=== PATIENT | male | born 1985 | race Caucasian/White ===

== ENCOUNTER 2017-02-20 16:00 | Emergency (ER) | payer OTHER, BC ==
[~2017-02-20] VITALS: Ht 182.9 cm; Wt 104.5 kg
[2017-02-20 16:09] VITALS: Ht 182.9 cm; Wt 104.5 kg
--- NOTE | 2017-02-20 16:21 | NUR ---
PROVIDER DR GIORDANO TO SEE PT
--- NOTE | 2017-02-20 16:39 | ERPDOC ---
Departure Disposition Decision Date: Feb 20, 2017 Disposition Decision Time: 18:26 Disposition: 01 DISCHARGED HOME, SELF-CARE Impression Impression Impression: Primary Impression: Sprain of ankle Additional Impression: Decreased pulses in feet Severity: Moderate Condition: Stable Seen By: Physician only Referrals: LIOR TERRELL MD (Family) Patient Instructions: Ankle Strain (ED) Problems/Meds/Labs Reviewed?: Yes Medications reviewed and manag: Yes Additional Instructions: Percocet 5 mg tablet, 1 TAB 4 times a day as needed for ankle pain. Follow-up with primary care provider in one week if still hurting.. He will need earlier follow-up if pain worsens or color or swelling of foot worsens. Follow up care ordered?: Yes Mental Status: Alert, Oriented Scripts Oxycodone HCl/Acetaminophen (Percocet 5-325 mg Tablet) 5-325 Tablet 1 TAB PO TID Y for PAIN, #15 TAB Take 1 tablet, by mouth, 4 times a day. Prov: HUSSEIN GIORDANO MD 02/20/17 HPI - Lower Extremity General Chief Complaint: Lower Extremity Injury Stated Complaint: RT ANKLE PAIN Time Seen by Provider: 16:35 HPI - Lower Extremity Initial Comments 31-year-old male with right foot pain. Patient twisted his ankle, noticed that he could not bear weight this afternoon and had worsening pain. He was seen by Dr. Frank who noted difficulty getting pulses and cool temperature in the foot. She tried to order an arterial study, but his pain was too high to wait, he was sent to the ED for evaluation and care. She did call before she sent him over. No other injuries, no previous injury to that foot. Patient feels like his whole body is hot and flushed except for the foot which is cold and feels like it's an ice bucket. Allergies: Coded Allergies: No Known Allergies (Unverified , 02/20/17) Past History Past Medical History Pt denies signifigant PMH Surgical History Denies Surgeries Family History Family History: Negative Social History Smoking Status: Never smoker Record Review Pertinent history updated: Yes Review of Systems Integumentary Skin: see HPI All other Systems All Other Systems: Reviewed and Negative Physical Exam General General Nourishment: well nourished, well developed, appears stated age Distress Description Pain in foot, sitting in wheelchair Vitals and Pain First Documented Vital Signs Date Time Temp Pulse Resp B/P Pulse Ox O2 Delivery O2 Flow Rate FiO2 02/20/17 16:09 99.0 87 20 139/78 98 Room Air Weight: Kilograms: 104.500 Height (feet): 6 Height (inches): 0 Triage Pain Scale: Normal Exams: Chest/Resp: Clear all ackerman, with good airflow, and symmetry bilaterally CV: Regular rate and rhythm, without murmur or gallop, Pulses 2+ all extremities, capillary refill, <2 seconds all ext., no pedal edema noted Neurologic: Patient is alert, and oriented, cranial nerves, motor/sensory/ cerebellar, exams w/o gross deficits, to observation Psychiatric: Patient exhibits, appropriate attention, emotion and affect Musculoskeletal (brief) Comments Pain lateral right ankle with edema. Foot is literally cold to the touch, toes are somewhat dusky. I am able to palpate a pulse distal. Neurologic (brief) Comments Sensory intact in right foot Differential Diagnoses Considering: Contusion, Dislocation, DVT, Fracture, Sprain, Strain Progress Results/Orders Orders Procedure Category Date Status Time Us Arterial Extremity US 02/20/17 Taken Lower Rt Foot Right 2 Views RAD 02/20/17 Taken Ankle Right 3 View RAD 02/20/17 Taken D-Dimer LAB 02/20/17 In Process Hydromorphone PHA 02/20/17 Complete (Dilaudid) 16:45 Ondansetron Odt PHA 02/20/17 Complete (Zofran Odt) 16:45 Lab Results Laboratory Tests Test 02/20/17 18:09 D-Dimer Pending Medications Current ED Medications Hydromorphone HCl (Dilaudid) 1 mg O ONCE IM Last administered on 02/20/17 17: 14; Start 02/20/17 at 16:45; Stop 02/20/17 at 16:46; Status DC Ondansetron HCl (Zofran Odt) 4 mg O ONCE PO Last administered on 02/20/17 17: 12; Start 02/20/17 at 16:45; Stop 02/20/17 at 16:46; Status DC Progress Progress Patient has significant sprain of right ankle. Vascular studies were obtained and showed patent arteries into the foot. Patient placed in a [place] boot/Cam Walker and will wear it for comfort. If pain is still present in a week, he will need further imaging of the joint. He will follow-up with his primary care provider as needed. Pain certainly increases or swelling or color worsen, he will follow up with primary care provider. HUSSEIN GIORDANO MD Feb 20, 2017 16:39
[2017-02-20] MEDS ORDERED: HYDROMORPHONE 2mg/ml INJECTION IM ONE (16:45)
[2017-02-20] MEDS ORDERED: ONDANSETRON ODT 4 MG TAB PO ONE (16:45)
[2017-02-20] MEDS ORDERED: LORA10TA62 PO (17:08)
[2017-02-20] MEDS ORDERED: IBUP-1724 PO (17:09)
[2017-02-20] MEDS ORDERED: FLUT9.9S NAS (17:09)
--- NOTE | 2017-02-20 17:14 | NUR ---
XRY PT TO XRY VIA WC.
--- NOTE | 2017-02-20 17:14 | NUR ---
[facility] PT GIVEN INSTRUCTION REGARDING ZOFRAN AND DILUADID. UNDERSTANDING VERBALIZED.
--- NOTE | 2017-02-20 17:22 | NUR ---
XRY PT RETURNED.
--- NOTE | 2017-02-20 18:10 | NUR ---
LAB IN ROOM TO DRAW LAB.
[2017-02-20] MEDS ORDERED: OXYC1TAB8 PO (18:29)
[2017-02-20 18:42] VITALS: BP 139/78; PULSE 87; RESP 20; TEMP 99; O2SAT 98
--- NOTE | 2017-02-21 08:38 | DI ---
Indication: ITS.REASON: rolled ankle PROCEDURE: FOOT RIGHT 2 VIEWS: Encounter: Initial Comparison: None Findings: There is no acute fracture, dislocation or malalignment identified. Impression: No acute osseous abnormality. .
--- NOTE | 2017-02-21 08:41 | DI ---
Indication: ITS.REASON: rolled ankle PROCEDURE: ANKLE RIGHT 3 VIEW: Encounter: Initial Comparison: None Findings: There is no acute fracture, dislocation or malalignment identified. Mild lateral soft tissue swelling. Impression: No acute osseous abnormality. .
--- NOTE | 2017-02-21 08:43 | DI ---
Indication: ITS.REASON: cool dusky foot PROCEDURE: US ARTERIAL EXTREMITY LOWER RT: Technique: Grayscale color and duplex Doppler imaging was performed of the arterial tree of both legs. Findings: RIGHT LEG (cm/sec) Common Femoral 108 Superficial Femoral Proximal 91.1 Mid 109 Distal 93.7 Popliteal 60.2 MANNY-prox 66.2 SUPERVISOR BLASTING-prox 54.1 MANNY-dist 54.1 SUPERVISOR BLASTING-dist 73 Normal waveforms and velocities throughout the right lower extremity. No evidence of arterial occlusion. IMPRESSION: No hemodynamically significant stenosis or occlusion. There is a preliminary report by [facility]. .
== END 2017-02-20 18:42 | disposition home or self-care (01) ==
LOC: ED 16:00
DX: S93.401A Sprain of unspecified ligament of right ankle, initial encounter (principal); R09.89 Other specified symptoms and signs involving the circulatory and respiratory systems; X50.1XXA Overexertion from prolonged static or awkward postures, initial encounter; Y93.9 Activity, unspecified; Y92.9 Unspecified place or not applicable; Y99.8 Other external cause status
CPT/HCPCS: 36415; 73610; 73620; 85379; 93926; 96372; 99283; J1170

== ENCOUNTER → 2017-03-01 | Outpatient (CLI) | payer OTHER, BC ==
[~2017-03-01] MED LIST: FLUT9.9S NAS; IBUP-1724 PO; LORA10TA62 PO; OXYC1TAB8 PO
--- NOTE | 2017-03-01 11:09 | DI ---
Indication: ITS.REASON: PAIN IN RIGHT ANKLE, recent trauma PROCEDURE: MRI ANKLE RIGHT W/O CONTRAST: Encounter: Initial Comparison: Ankle radiographs dated February 20, 2017 Technique: Multiplanar multisequence MR imaging of the right ankle was performed without contrast FINDINGS: The Achilles tendon is normal in morphology and signal. Extensor tendons are normal. The posterior tibialis, flexor digitorum, and flexor hallucis longus tendons are normal. The peroneus longus and brevis tendons are normal. The deltoid ligament is intact. The anterior talofibular ligament is torn. The calcaneofibular, and posterior talofibular ligaments are intact. The plantar fascia is normal. Bone marrow signal is unremarkable. IMPRESSION: Tear of the anterior talofibular ligament. .
--- NOTE | 2017-03-01 11:11 | DI ---
Indication: ITS.REASON: [id number] PAIN IN RIGHT FOOT PROCEDURE: MRI FOOT RIGHT W/O CONTRAST: Encounter: Initial Comparison: MRI of the right ankle from today Technique: Multiplanar multisequence MR imaging of the right foot was performed without contrast. Findings: Bone marrow signal intensity is within normal limits. No acute fracture or dislocation. Joint spaces appear normal. The flexor and extensor tendons are intact. Lisfranc ligament is intact. Foot musculature shows normal signal intensity. No fluid collections identified. Impression: Negative exam. .
== END ==
LOC: IMA 08:39
PROVIDERS: ATTEND Family Medicine
DX: S93.491A Sprain of other ligament of right ankle, initial encounter (principal); X58.XXXA Exposure to other specified factors, initial encounter; Y93.89 Activity, other specified; Y92.9 Unspecified place or not applicable; Y99.0 Civilian activity done for income or pay; M79.671 Pain in right foot